=== PATIENT | female | born 1985 | race Caucasian/White ===

== ENCOUNTER 2016-06-18 22:03 | Emergency (ER) | payer OTHER ==
[~2016-06-18] VITALS: Ht 165.1 cm; Wt 58.6 kg
[~2016-06-18 22:03] MED LIST: PREN0.01 PO
[2016-06-18 22:11] VITALS: BP 125/77; PULSE 99; RESP 14; TEMP 98.4; O2SAT 99
--- NOTE | 2016-06-18 23:17 | PD ---
HPI Chief Complaint: Agile Java Developer Problem/Complaint Time Seen by Provider: 23:13 Travel History International Travel<30 days: No Contact w/Intl Traveler<30days: No Traveled to known affect area: No History of Present Illness HPI 30 year-old female presents to the emergency department by private transportation for vaginal cramping and bleeding. Patient reports she is approximate 5-6 weeks . Last menstrual period was 05/08/16. Patient is 2 para 1 AB 0. Patient has not yet been seen by an BOTANY TEACHER for this . Patient's had urinary frequency. Patient states pain is sharp and stabbing when present. Patient states she noticed a large amount of blood in the toilet when she went to the bathroom just prior to arrival to the emergency department. Patient's had spotting throughout the day. Patient denies other concerns or complaints. No trauma or injury. No fever or chills. PFSH Past Medical History Narrative Medical Ab0 A positive occasional alcohol use positive tobacco use; nursing notes reviewed Medical History: Denies Significant Hx Diminished Hearing: No Tetanus Vaccination: Unknown Influenza Vaccination: No ?: LMP: 05/08/16 : 2 Para: 1 Past Surgical History Surgical History: No Previous Surgery Social History Alcohol Use: Yes (RARE) Tobacco Use: Yes (1PPD) Substance Use: No Allergies-Medications (Allergen,Severity, Reaction): Coded Allergies: No Known Allergies (Verified , 06/18/16) Reported Meds & Prescriptions Reported Meds & Active Scripts Active Reported Vit ( Plus) (Prenat Multivit/Forensic Manager/Iron/Folic Ac) Tab 1 Tab PO DAILY Review of Systems Except as stated in HPI: all other systems reviewed are Neg Physical Exam Narrative GENERAL: Well-developed well-nourished female in no acute distress no respiratory distress SKIN: Warm and dry. HEAD: Normocephalic. EYES: No scleral icterus. No injection or drainage. NECK: Supple, trachea midline. No JVD or lymphadenopathy. CARDIOVASCULAR: Regular rate and rhythm without murmurs, gallops, or rubs. RESPIRATORY: Breath sounds equal bilaterally. No accessory muscle use. GASTROINTESTINAL: Abdomen soft, non-tender, nondistended. Pelvic exam: Normal external exam no lesions no induration no erythema; speculum exam blood in the vaginal vault with flecks of possible pink tissue no clots or other tissue identified, cervical os fingertip in size; bimanual exam no adnexal mass or tenderness no cervical motion tenderness. MUSCULOSKELETAL: No cyanosis, or edema. BACK: Nontender without obvious deformity. No CVA tenderness. Data Data Last Documented VS Vital Signs Date Time Temp Pulse Resp B/P Pulse Ox O2 Delivery O2 Flow Rate FiO2 06/19/16 02:25 80 16 112/73 99 Room Air 06/18/16 22:11 98.4 Orders Beta Hcg (Quant/Titer) (06/18/16 23:14) Complete Blood Count With Diff (06/18/16 23:14) Basic Metabolic Panel (Bmp) (06/18/16 23:14) Urinalysis - C+S If Indicated (06/18/16 23:14) Ed Urine Pregnancytest Poc (06/18/16 23:14) Us Pelvis (Ques Pr/Ect)W Trans (06/19/16 ) Orthostatic Vital Signs (06/19/16 02:07) Labs Laboratory Tests Test 06/18/16 23:25 White Blood Count 12.0 TH/MM3 Red Blood Count 3.97 MIL/MM3 Hemoglobin 13.3 GM/DL Hematocrit 38.4 % Mean Corpuscular Volume 96.7 FL Mean Corpuscular Hemoglobin 33.6 PG Mean Corpuscular Hemoglobin 34.7 % Concent Red Cell Distribution Width 12.5 % Platelet Count 239 TH/MM3 Mean Platelet Volume 8.3 FL Neutrophils (%) (Auto) 64.9 % Lymphocytes (%) (Auto) 24.9 % Monocytes (%) (Auto) 8.4 % Eosinophils (%) (Auto) 0.8 % Basophils (%) (Auto) 1.0 % Neutrophils # (Auto) 7.8 TH/MM3 Lymphocytes # (Auto) 3.0 TH/MM3 Monocytes # (Auto) 1.0 TH/MM3 Eosinophils # (Auto) 0.1 TH/MM3 Basophils # (Auto) 0.1 TH/MM3 CBC Comment DIFF FINAL Differential Comment Urine Color YELLOW Urine Turbidity CLEAR Urine pH 6.0 Urine Specific [place] 1.021 Urine Protein NEG mg/dL Urine Glucose (UA) NEG mg/dL Urine Ketones NEG mg/dL Urine Occult Blood MOD Urine Nitrite NEG Urine Bilirubin NEG Urine Leukocyte Esterase NEG Urine RBC 3-5 /hpf Urine WBC 0-2 /hpf Urine Squamous Epithelial 6-8 /hpf Cells Urine Bacteria NONE /hpf Microscopic Urinalysis Comment CULT NOT INDICATED Sodium Level 144 MEQ/L Potassium Level 3.6 MEQ/L Chloride Level 110 MEQ/L Carbon Dioxide Level 26.0 MEQ/L Anion Gap 8 MEQ/L Blood Urea Nitrogen 14 MG/DL Creatinine 0.80 MG/DL Estimat Glomerular Filtration 85 ML/MIN Rate Random Glucose 119 MG/DL Calcium Level 8.4 MG/DL Human Chorionic Gonadotropin, 121 MIU/ML Quant MDM Medical Decision Making Medical Screen Exam Complete: Yes Emergency Medical Condition: Yes Medical Record Reviewed: Yes (07/24/09/ (A +) blood type) Interpretation(s) POC hcg: positive Quant HC, positive Last Impressions Pelvis Ultrasound 06/19/16 0000 Signed Impressions: Service Date/Time: Sunday, June 19, 2016 01:16 - CONCLUSION: 1. The uterus is empty. No gestational sac is demonstrated. In a patient with a positive beta hCG the differential considerations include an early IUP not yet visualized, an early ectopic not yet visualized, spontaneous AB. Recommend serial beta-hCGs and followup ultrasound if indicated. 2. Solid-appearing density associated with the right ovary measuring 1.8 cm. This may be a focal endometrioma. Deandre Garzon MD CBC & BMP Diagram 06/18/16 23:25 Vital Signs Date Time Temp Pulse Resp B/P Pulse Ox O2 Delivery O2 Flow Rate FiO2 06/18/16 23:35 104 18 134/89 98 Room Air 06/18/16 22:37 16 06/18/16 22:11 98.4 99 14 125/77 99 Differential Diagnosis , ectopic , threatened versus inevitable versus incomplete versus complete spontaneous AB/miscarriage, UTI Narrative Course IV access obtained specimens collected and sent for resulting Bedside ultrasound reveals no intrauterine ; quantitative hCG pending Quantitative hCG 121 by dates patient should be 6 weeks pelvic ultrasound transvaginal ordered Ultrasound does not identify intrauterine identifies solid density right ovary for possible endometrioma; at this time patient reassessed for ongoing bleeding Physician Communication Physician Communication discussed with senior contracts administrator OB ED MD --serial quant hcg's Diagnosis Primary Impression: Vaginal bleeding in patient at less than 20 weeks gestation Additional Impression: Threatened Referrals: [employer] Over[employer]uler 3 days Patient Instructions: General Instructions Departure Forms: Tests/Procedures, Work Release Special Instructions: no work x 2 days Additional Instructions: Repeat quantitative hCG in 48 hours Bedrest and pelvic rest 48 hours Return to the emergency department for increased pain bleeding or any concerns Increase fluid hydration Take as needed as tolerated acetaminophen/Tylenol every 4-6 hours for fever 100.4F or greater or for pain as needed/as tolerated No work 2 days Disposition: 01 DISCHARGE HOME Condition: Stable Milly Pena MD June 18, 2016 23:17
[2016-06-18 23:35] VITALS: BP 134/89; PULSE 104; RESP 18; O2SAT 98
[2016-06-18 23:54] LABS: AUTOMATED NEUTROPHIL # 7.8 TH/MM3 (1.8-7.7); BASOPHIL # 0.1 TH/MM3 (0-0.2); EOSINOPHIL # 0.1 TH/MM3 (0-0.4); EOSINOPHIL % 0.8 % (0.0-4.0); GLUCOSE,URINE NEG (NEG); HEMATOCRIT 38.4 % (35.0-46.0); HEMO FLAGS DIFF FINAL; KETONE, URINE NEG (NEG); LYMPH % 24.9 % (9.0-44.0); MEAN CELL VOLUME 96.7 FL (80.0-100.0); MEAN CORPUSCULAR HEMOGLOBIN 33.6 PG (27.0-34.0); MEAN CORPUSCULAR HGB CONC 34.7 % (32.0-36.0); MONO % 8.4 % (0.0-8.0); NEUT % 64.9 % (16.0-70.0); NITRITE,URINE NEG (NEG); PLATELET COUNT 239 TH/MM3 (150-450); RED BLOOD COUNT 3.97 MIL/MM3 (4.00-5.30); RED CELL DISTRIBUTION WIDTH 12.5 % (11.6-17.2)
[2016-06-19 00:01] LABS: BLOOD, URINE MOD (NEG)
[2016-06-19 00:02] LABS: URINE COLOR YELLOW (YELLW/STRAW); WBC, URINE 0-2 /hpf (0-5)
[2016-06-19 00:03] LABS: COMMENT (UR) CULT NOT INDICATED; CULTURE IF INDICATED CULT NOT INDICATED; POTASSIUM 3.6 MEQ/L (3.5-5.1)
--- NOTE | 2016-06-19 01:51 | RADHPO ---
EXAM DATE/TIME: 06/19/2016 01:16 [facility] COMPARISON: No previous studies available for comparison. INDICATIONS : Pelvic pain and vaginal bleeding. LAB(S): Beta-hC MEDICAL HISTORY : . SURGICAL HISTORY : None. ENCOUNTER: Initial ACUITY: 3 days PAIN SCORE: 4/10 LOCATION: Bilateral pelvis MEASUREMENTS: UTERUS: 7.9 x 4.5 x 5.8 cm ENDOMETRIAL STRIPE: 13 mm RIGHT OVARY: 2.6 x 2.6 x 2.0 cm LEFT OVARY: 1.4 x 0.9 x 1.9 cm FREE FLUID: No CROWN RUMP LENGTH: Not visualized. = WKS DAYS FHR: Not visualized. BPM FINDINGS: UTERUS: The myometrium has homogeneous echotexture without mass. The endometrial cavity is empty. There is n o evidence of a gestational sac at this time. RIGHT OVARY: There is a focal well-defined hypoechoic density associated with the right ovary measuring 1.8 x 1.5 cm. LEFT OVARY: Ovary contains no mass or significant cystic lesion. MISCELLANEOUS: No free fluid. CONCLUSION: 1. The uterus is empty. No gestational sac is demonstrated. In a patient with a positive beta hCG the differential considerations include an early IUP not yet visualized, an early ectopic not yet visual ized, spontaneous AB. Recommend serial beta-hCGs and followup ultrasound if indicated. 2. Solid-appearing density associated with the right ovary measuring 1.8 cm. This may be a focal endo metrioma. Deandre Garzon MD on June 19, 2016 at 1:45 Board Certified Radiologist. This report was verified electronically.
[2016-06-19 02:00] VITALS: BP 113/68; PULSE 81; RESP 16; O2SAT 99
[2016-06-19 02:25] VITALS: BP_SYST 109; BP_SYST 112; BP_SYST 119; BP_DIAS 62; BP_DIAS 73; BP_DIAS 76; PULSE 80; RESP 16; O2SAT 99
[2016-06-19 03:20] VITALS: BP 134/81; PULSE 94; RESP 16; O2SAT 98
[2016-07-01] MEDS ORDERED: NORE1CAP PO (14:35)
== END 2016-06-19 03:38 | disposition home or self-care (01) ==
LOC: PHED 22:03
DX: O46.91 Antepartum hemorrhage, unspecified, first trimester (principal); O20.0 Threatened abortion; R35.0 Frequency of micturition; F17.200 Nicotine dependence, unspecified, uncomplicated; Z3A.01 Less than 8 weeks gestation of pregnancy
CPT/HCPCS: 76700; 76817; 80048; 81001; 84702; 84703; 85025